=== PATIENT | male | born 1950 | race Caucasian/White ===

== ENCOUNTER 2025-01-02 10:18 | Inpatient (IN) | payer MEDICARE, MEDICAID ==
[~2025-01-02] VITALS: Ht 160 cm; Wt 108.0 kg
[2025-01-02 10:21] VITALS: O2SAT 99
[2025-01-02 11:01] LABS: HEMATOCRIT. 39.1 % (42.0-52.0); HEMOGLOBIN. 12.4 g/dL (14.0-18.0); RED BLOOD CELL COUNT 3.85 mill/uL (4.7-6.1); RED CELL DISTRIBUTION WIDTH 15.9 % (11.6-14.6)
[2025-01-02 11:07] LABS: CREATININE 1.3 mg/dL (0.6-1.3); TROPONIN I HIGH SENSITIVITY 11 ng/L (3.0-53); UREA NITROGEN BLOOD 23 mg/dL (9-23)
[2025-01-02] MEDS: SODIUM CHLORIDE 0.9% (SEPSIS BOLUS) IV ONE (11:17)
[2025-01-02] MEDS: PIPERACILLIN/TAZO 3.375G/50ML 50 ML IV ONE (11:29)
[2025-01-02 11:34] LABS: MEAN PLATELET VOLUME 12.1 fl (7.4-10.4); PLATELET 38 x1000/uL (130-400)
[2025-01-02 11:38] LABS: BAND% 7.0 % (1.0-6.0); LYMPHOCYTES % MANUAL 7.0 % (20.0-50.0); MONOCYTES % MANUAL 17.0 % (2.0-8.0); NEUTROPHILS % MANUAL 69.0 % (45.0-75.0)
[2025-01-02 11:39] LABS: PLATELET ESTIMATE MARKEDLY DECREASED
[2025-01-02 11:40] LABS: INR 1.1
[2025-01-02 11:47] LABS: ASPARTATE AMINOTRANSFERASE 18 IU/L (<34); BILIRUBIN DIRECT 0.2 mg/dL (<=3.0); BILIRUBIN TOTAL 0.6 mg/dL (0.1-1.0); PROTEIN TOTAL 6.6 g/dL (6.0-8.3)
[2025-01-02] MEDS: VANCOMYCIN 1G PREMIX 200 ML IV ONE (12:06)
[2025-01-02 13:27] VITALS: BP 114/65; PULSE 127; RESP 19; TEMP 36.5; TEMP 36.5292; O2SAT 95
[2025-01-02] MEDS ORDERED: CLONIDINE 0.1MG TABLET PO PRN (15:45)
[2025-01-02] MEDS ORDERED: ONDANSETRON HCL 4MG/2ML INJ IV PRN (15:45)
[2025-01-02] MEDS ORDERED: IPRATROPIUM/ALBUTEROL 0.5-3(2.5)MG/3ML NEB HHN PRN (15:45)
[2025-01-02] MEDS ORDERED: LORAZEPAM 0.5MG TABLET PO PRN (15:45)
[2025-01-02 16:00] VITALS: BP 134/68; PULSE 122; RESP 16; TEMP 36.4; O2SAT 95
[2025-01-02] MEDS ORDERED: SODIUM CHLORIDE 0.9% 1,000 ML IV SCH (16:00)
[2025-01-02] MEDS ORDERED: CEFTRIAXONE 1GM/50ML 50 ML IV SCH (18:00)
[2025-01-02] MEDS: TAMSULOSIN HCL 0.4MG SR CAPSULE PO SCH (19:04)
[2025-01-02 20:00] VITALS: BP 123/70; PULSE 110; RESP 20; TEMP 36.4; O2SAT 97
[2025-01-02] MEDS ORDERED: FURO20TA4 PO (20:09)
[2025-01-02] MEDS: METRONIDAZOLE 500 MG PREMIX 100 ML IV SCH (21:32)
[2025-01-02 23:46] LABS: CLARITY URINE CLOUDY (CLEAR); COLOR URINE DARK YELLOW (YELLOW); GLUCOSE URINE NEGATIVE (NEGATIVE); KETONES URINE NEGATIVE (NEGATIVE); LEUKOCYTE ESTERASE URINE NEGATIVE (NEGATIVE); NITRITE URINE NEGATIVE (NEGATIVE); OCCULT BLOOD URINE 2+ (NEGATIVE); PH URINE 5.0 (4.5-8.0); PROTEIN URINE 2+ (NEGATIVE); SPECIFIC GRAVITY URINE 1.017 (1.005-1.030); UROBILINOGEN URINE 0.2 E.U./dL (0.2-1.0)
[2025-01-02] MEDS: PIPERACILLIN/TAZO 3.375G/50ML 50 ML IV SCH (23:54)
[2025-01-03] VITALS (8 sets, daily range): BP systolic 116–141; BP diastolic 62–70; PULSE 80–112; RESP 16–26; TEMP 35.8–36.5; O2SAT 96–100
[2025-01-03 00:15] LABS: BACTERIA URINE TRACE; SQUAMOUS EPITHELIAL CELL URINE NONE SEEN /lpf (RARE/1+); WBC URINE NONE SEEN /hpf (0-2)
[2025-01-03 07:20] LABS: HEMATOCRIT. 34.7 % (42.0-52.0); HEMOGLOBIN. 11.0 g/dL (14.0-18.0); MEAN PLATELET VOLUME 13.2 fl (7.4-10.4); RED BLOOD CELL COUNT 3.41 mill/uL (4.7-6.1); RED CELL DISTRIBUTION WIDTH 16.2 % (11.6-14.6)
[2025-01-03 07:26] LABS: TRIGLYCERIDE 95 mg/dL (0-150)
[2025-01-03 07:27] LABS: CREATININE 1.3 mg/dL (0.6-1.3)
[2025-01-03 07:28] LABS: UREA NITROGEN BLOOD 20 mg/dL (9-23)
[2025-01-03 07:29] LABS: ASPARTATE AMINOTRANSFERASE 22 IU/L (<34); LDL CHOLESTEROL 79 mg/dL (5-100)
[2025-01-03 07:30] LABS: BILIRUBIN DIRECT 0.3 mg/dL (<=3.0); BILIRUBIN TOTAL 0.8 mg/dL (0.1-1.0); PROTEIN TOTAL 6.1 g/dL (6.0-8.3)
[2025-01-03 07:51] LABS: PLATELET 35 x1000/uL (130-400)
[2025-01-03 07:57] LABS: BAND% 8.0 % (1.0-6.0); LYMPHOCYTES % MANUAL 6.0 % (20.0-50.0); METAMYELOCYTES % 2.0 % (0-0); MONOCYTES % MANUAL 39.0 % (2.0-8.0); NEUTROPHILS % MANUAL 45.0 % (45.0-75.0); PLATELET ESTIMATE MARKEDLY DECREASED
[2025-01-03] MEDS: METOPROLOL SUCCINATE 50MG ER TABLET PO SCH (09:31)
[2025-01-03] MEDS: PANTOPRAZOLE 40MG DR TABLET PO SCH (09:31)
[2025-01-03] MEDS ORDERED: DEXTROSE 50% WATER 50ML SYRINGE IV PRN (17:00)
[2025-01-03] MEDS ORDERED: CEFEPIME 1GM IN DEXT 5% 50ML IV SCH (17:00)
[2025-01-03] MEDS: BLOOD SUGAR DIAGNOSTIC STRIP TEST SCH (17:21)
[2025-01-03] MEDS: INSULIN LISPRO 100 UNITS/ML SUBCUT SCH (18:48)
[2025-01-03] MEDS: CEFEPIME 2GM PREMIX 100ML IV SCH (21:11)
[2025-01-04] VITALS (9 sets, daily range): BP systolic 130–143; BP diastolic 66–74; PULSE 99–107; RESP 16–22; TEMP 36.2–36.6; O2SAT 94–99
[2025-01-04 10:26] LABS: RED BLOOD CELL COUNT 3.44 mill/uL (4.7-6.1); RED CELL DISTRIBUTION WIDTH 16.2 % (11.6-14.6)
[2025-01-04 10:38] LABS: PLATELET 27 x1000/uL (130-400)
[2025-01-04 10:40] LABS: CREATININE 1.2 mg/dL (0.6-1.3); UREA NITROGEN BLOOD 13.0 mg/dL (9-23)
[2025-01-04] MEDS: AZITHROMYCIN 500MG/250ML 250 ML IV SCH (13:09)
[2025-01-05] VITALS (7 sets, daily range): BP systolic 115–151; BP diastolic 59–79; PULSE 75–95; RESP 17–19; TEMP 35.7–37.1; O2SAT 97–100
[2025-01-05 09:40] LABS: CREATININE 1.0 mg/dL (0.6-1.3); UREA NITROGEN BLOOD 18 mg/dL (9-23)
[2025-01-05] MEDS ORDERED: METF-414 PO (10:43)
[2025-01-05] MEDS ORDERED: TAMS-54 PO (10:43)
[2025-01-05] MEDS ORDERED: AZIT250T12 PO (10:43)
[2025-01-05] MEDS ORDERED: ALBU10.7 INH (10:43)
[2025-01-05] MEDS ORDERED: METO-385 PO (10:43)
[2025-01-05] MEDS ORDERED: SITA50TA3 PO (10:52)
[2025-01-05] MEDS ORDERED: SPIR25TA6 PO (10:52)
[2025-01-05] MEDS ORDERED: FURO-152 PO (10:52)
[2025-01-05] MEDS ORDERED: GLIP10TA17 PO (10:52)
== END 2025-01-05 15:47 | disposition home health service (06) | DRG 871 ==
LOC: ER 10:18 → 6WST 12:24 → EDBEDREQ 12:31 → ENRESERV 13:08
PROVIDERS: ADMIT Internal Medicine; ATTEND Internal Medicine
PROC: 5A09357 Assistance with Respiratory Ventilation, Less than 24 Consecutive Hours, Continuous Positive Airway Pressure (ICD-10-PCS; principal; 2025-01-03)
PROC: 5A09357 Assistance with Respiratory Ventilation, Less than 24 Consecutive Hours, Continuous Positive Airway Pressure (ICD-10-PCS; 2025-01-04)
PROC: 5A09357 Assistance with Respiratory Ventilation, Less than 24 Consecutive Hours, Continuous Positive Airway Pressure (ICD-10-PCS; 2025-01-05)
DX: A41.9 Sepsis, unspecified organism (principal); J18.9 Pneumonia, unspecified organism; J44.0 Chronic obstructive pulmonary disease with (acute) lower respiratory infection; J96.11 Chronic respiratory failure with hypoxia; I50.22 Chronic systolic (congestive) heart failure; E87.20 Acidosis, unspecified; Z68.41 Body mass index [BMI] 40.0-44.9, adult; I11.0 Hypertensive heart disease with heart failure; D69.6 Thrombocytopenia, unspecified; N40.0 Benign prostatic hyperplasia without lower urinary tract symptoms; D53.9 Nutritional anemia, unspecified; K52.9 Noninfective gastroenteritis and colitis, unspecified; E66.9 Obesity, unspecified; G47.33 Obstructive sleep apnea (adult) (pediatric); E86.0 Dehydration; E11.9 Type 2 diabetes mellitus without complications; S80.811A Abrasion, right lower leg, initial encounter; S80.812A Abrasion, left lower leg, initial encounter; I27.81 Cor pulmonale (chronic); I87.2 Venous insufficiency (chronic) (peripheral); R31.9 Hematuria, unspecified; F17.210 Nicotine dependence, cigarettes, uncomplicated; Z79.84 Long term (current) use of oral hypoglycemic drugs; Z99.81 Dependence on supplemental oxygen; X58.XXXA Exposure to other specified factors, initial encounter; Y93.89 Activity, other specified; Y92.89 Other specified places as the place of occurrence of the external cause; Y99.8 Other external cause status; R65.20 Severe sepsis without septic shock
CPT/HCPCS: 36415; 71045; 74176; 80048; 80061; 80076; 81003; 82550; 82962; 83036; 83605; 83880; 84145; 84484; 85025; 85027; 93005; 93970; 94070; 94660; 94760; 96365; 96367; 99291; J0456; J0692; J0696; J1815; J2543; J3373; J3490; J7030